=== PATIENT | male | born 1945 | race Caucasian/White ===

== ENCOUNTER → 2018-02-25 | Outpatient (CLI) | payer OTHER | LOC: BHFA 14:30 | PROVIDERS: ATTEND Internal Medicine Cardiovascular Disease | DX: I25.10 Atherosclerotic heart disease of native coronary artery without angina pectoris (principal); E78.5 Hyperlipidemia, unspecified ==

== ENCOUNTER 2018-03-22 16:47 | Inpatient (IN) | payer OTHER ==
[2018-03-22 17:28] LABS: PLATELET COUNT 269 10^3/uL (150-400)
[2018-03-22] MEDS ORDERED: ASPIRIN 81 MG CHEWABLE TAB PO ONE (17:34)
--- NOTE | 2018-03-22 17:40 | EDPHY ---
H & P Stated Complaint: midsternal CP x ~3 hours Time Seen by Provider: 03/22/18 17:00 HPI/ROS: CHIEF COMPLAINT: Heartburn HISTORY OF PRESENT ILLNESS: 72-year-old male with CAD, status post cardiac stents in 2010 presents with heartburn. After working out in the gym, he developed heartburn while in the shower at 1:30 p.m.. The heartburn was 8/10 initially and associated with diaphoresis. The chest discomfort has persisted, and gradually subsided. Pain is now 3/10. No prior similar symptoms. He was diagnosed with coronary artery disease by cardiac catheterization during evaluation for pulmonary embolism, but has never had chest pain or shortness of breath. Recently stopped Plavix. Did not take aspirin today. REVIEW OF SYSTEMS: complete 10 point ROS reviewed and is negative except for the noted elements in the HPI - Personal History Tetanus Vaccine Date: 2012 - Medical/Surgical History Hx Asthma: No Hx Chronic Respiratory Disease: No Hx Diabetes: No Hx Cardiac Disease: Yes Hx Renal Disease: No Hx Cirrhosis: No Hx Alcoholism: No Hx HIV/AIDS: No Hx Splenectomy or Spleen Trauma: No Other PMH: cardiac stents 2010. htn. hyperlipid - Social History Smoking Status: Never smoked Alcohol Use: Sober Drug Use: None Additional Social History: - Physical Exam Exam: General Appearance: Alert, pleasant Eyes: Pupils equal and round, no conjunctival pallor or injection ENT, Mouth: Mucous membranes moist Neck: Normal inspection Respiratory: Lungs are clear to auscultation Cardiovascular: Regular rate and rhythm Gastrointestinal: Abdomen is soft and nontender Neurological: A&O, nonfocal, normal gait Skin: Warm and dry, no rash Extremities: Nontender, no pedal edema Psychiatric: Mood and affect normal Constitutional: Initial Vital Signs Temperature (C) 36.4 C 03/22/18 16:51 Heart Rate 94 03/22/18 16:51 Respiratory Rate 16 03/22/18 16:51 Blood Pressure 153/100 H 03/22/18 16:51 O2 Sat (%) 96 03/22/18 16:51 O2 Delivery Mode Room Air O2 (L/minute) 2 Allergies/Adverse Reactions: No Known Allergies Allergy (Verified 03/22/18 20:33) Home Medications: Medication Instructions Recorded Rosuvastatin Calcium [Crestor] 10 mg PO HS 11/08/12 Aspirin [Aspirin 325 mg (*)] 325 mg PO HS 03/22/18 Dexlansoprazole [Dexilant] 60 mg PO DAILY 03/22/18 Fluticasone Nasal [Flonase Nasal 2 sprays NASAL DAILY 03/22/18 Perry (RX)] Losartan Potassium [Cozaar 50 mg 50 mg PO HS 03/22/18 (*)] Medical Decision Making - Diagnostics EKG Interpretation: EKG interpreted by me reveals probable sinus tachycardia, Pac, poor R-wave progression, ST segment depression. Interpretation: Abnormal EKG Imaging Results: Imaging Impressions Chest X-Ray 03/22/18 17:13 Impression: 1.No pneumonia or evidence for CHF in this patient with CAD. Imaging: I viewed and interpreted images myself ED Course/Re-evaluation: 1734: Dr. Campuzano consulted. ASA 325mg given. 1809: repeat EKG reveals ST segment elevation in the anterior leads, c/w ACS. Dr. Campuzano is in the emergency department and EKG reviewed with him. The cardiac catheterization lab was called and Dr Campuzano went to see the pt. The patient was taken to the medical laboratory technicians by Dr. Esteban salas. The patient remained stable throughout his emergency department stay. He continued to have 3/10 chest pain throughout his emergency department stay. Differential Diagnosis: Differential diagnosis includes though it is not limited to pneumonia, pneumothorax, pulmonary embolism, aortic dissection, pericarditis, acute coronary syndrome. - Data Points Laboratory Results: Laboratory Results 03/22/18 17:17 03/22/18 17:17 03/22/18 03/22/18 03/22/18 17:20 17:17 17:17 WBC 12.47 10^3/uL H 10^3/uL (3.80-9.50) RBC 5.60 10^6/uL 10^6/uL (4.40-6.38) Hgb 16.9 g/dL g/dL (13.7-17.5) Hct 47.9 % % (40.0-51.0) MCV 85.5 fL fL (81.5-99.8) MCH 30.2 pg pg (27.9-34.1) MCHC 35.3 g/dL g/dL (32.4-36.7) RDW 12.2 % % (11.5-15.2) Plt Count 269 10^3/uL 10^3/uL (150-400) MPV 10.0 fL fL (8.7-11.7) Neut % (Auto) 88.7 % H % (39.3-74.2) Lymph % (Auto) 6.3 % L % (15.0-45.0) [place] % (Auto) 4.1 % L % (4.5-13.0) Eos % (Auto) 0.3 % L % (0.6-7.6) Baso % (Auto) 0.2 % L % (0.3-1.7) Nucleat RBC Rel Count 0.0 % % (0.0-0.2) Absolute Neuts (auto) 11.05 10^3/uL H 10^3/uL (1.70-6.50) Absolute Lymphs (auto) 0.79 10^3/uL L 10^3/uL (1.00-3.00) Absolute Monos (auto) 0.51 10^3/uL 10^3/uL (0.30-0.80) Absolute Eos (auto) 0.04 10^3/uL 10^3/uL (0.03-0.40) Absolute Basos (auto) 0.03 10^3/uL 10^3/uL (0.02-0.10) Absolute Nucleated RBC 0.00 10^3/uL 10^3/uL (0-0.01) Immature Gran % 0.4 % % (0.0-1.1) Immature Gran # 0.05 10^3/uL 10^3/uL (0.00-0.10) Sodium 140 mEq/L mEq/L (135-145) Potassium 4.5 mEq/L mEq/L (3.5-5.2) Chloride 107 mEq/L mEq/L (97-110) Carbon Dioxide 25 mEq/l mEq/l (22-31) Anion Gap 8 mEq/L mEq/L (6-14) BUN 22 mg/dL mg/dL (7-23) Creatinine 1.3 mg/dL mg/dL (0.7-1.3) Estimated GFR 54 Glucose 117 mg/dL H mg/dL (70-100) Calcium 9.7 mg/dL mg/dL (8.5-10.4) POC Troponin I 2.05 ng/mL H ng/mL (0.00-0.08) NT-Pro-B Natriuret Pep 76 pg/mL pg/mL (0-125) Medications Given: Hydrocodone Bitart/Acetaminophen ([place] 5/325) 1 - 2 tab PO Q4HRS PRN PRN Reason: Pain, Moderate Stop: 04/01/18 19:35 Last Admin: 03/22/18 20:24 Dose: 2 tab HCTZ/Losartan Potassium (Hyzaar 50/12.5) 2 tab PO DAILY MARTIR Stop: 09/18/18 19:44 Last Admin: 03/22/18 20:25 Dose: 2 tab Metoprolol Tartrate (Lopressor) 50 mg PO BID MARTIR Stop: 09/18/18 20:59 Last Admin: 03/22/18 20:25 Dose: 50 mg Ondansetron HCl (Zofran) 2 - 4 mg IVP Q6HRS PRN PRN Reason: Nausea/Vomiting, Use 1st Stop: 09/18/18 19:35 Last Admin: 03/22/18 21:18 Dose: 4 mg Discontinued Medications Aspirin (Aspirin) 324 mg PO EDNOW ONE Stop: 03/22/18 17:35 Last Admin: 03/22/18 17:46 Dose: 324 mg Nitroglycerin (Nitro-Bid) 0.4 mg PO BID PRN PRN Reason: Chest Pain Stop: 09/18/18 20:59 Last Admin: 03/22/18 18:34 Dose: 0.4 mg Point of Care Test Results: Chemistry 03/22/18 17:20 POC Troponin I 2.05 ng/mL H ng/mL (0.00-0.08) Departure - Departure Disposition: [facility] Clinical Impression: Acute coronary syndrome Condition: Serious
[2018-03-22] MEDS ORDERED: NITROGLYCERIN 0.4 MG BTL SL ONE (18:28)
[2018-03-22] MEDS ORDERED: LIDOCAINE 1% 300 MG/30 ML SDV ONE (18:32)
[2018-03-22] MEDS ORDERED: NITROGLYCERIN 2.5 MG PO PRN (18:32)
[2018-03-22] MEDS ORDERED: fentaNYL 100 MCG/2 ML INJ ONE (18:33)
[2018-03-22] MEDS ORDERED: MIDAZOLAM 2 MG/2 ML VIAL ONE (18:33)
[2018-03-22] MEDS ORDERED: IOPAMIDOL (ISOVUE-370) 150 ML BTL IV ONE (18:33)
--- NOTE | 2018-03-22 19:07 | PDPROPOC ---
Sedation Plan of Care Sedation Plan of Care: vital signs stable, mental status noted, patient educated of risks, benefits, alternatives, patient can tolerate sedation Planned drugs: fentanyl, midazolam Mallampati Score: Class 3 Mallampati Reference Image: Patient passed 3-3-2 rule?: Yes
[2018-03-22] MEDS ORDERED: BIVALIRUDIN 250 MG/5 ML VIAL IV ONE (19:09)
--- NOTE | 2018-03-22 19:14 | PDDXCAT ---
Diagnostic Cath Note - . Date: 03/22/18 Label Fuser Tender: Alma Rosa Indication: CCC Class III and IV angina on medical treatment - Procedure Access: right groin Procedure: left heart catheterization, coronary angiography, left ventriculogram - Materials Left Heart Cath size: 6F Left Heart Cath materials: JL4.0, JR4.0, pigtail - Findings-Left Heart Catheterization LM: The left main is 8mm in size and trifurcates into a circumflex, left anterior descending and ramus systems. There is a 20% ostial stenosis and VAN III flow. LAD: The left anterior descending is 2mm in size and previously stented in the proximal segment. LCX: The circumflex is 4mm in size. There is VAN III flow and no evidence of obstruction. RCA: The right coronary artery is 3mm in size and dominant. The vessel gives rise to the posterior descending artery. There is VAN III flow throughout. There is no evidence of flow-limiting disease. Ramus: The ramus is 1mm in size with VAN III. EDP: 30mmHg. LVEF: 45%. Wall motion: On the LV gram there is mildly decreased LV systolic function. The EF is 45%. There are no resting segmental wall motion abnormalities. The visualized portion of the thoracic aortic valve reveals three sinuses of valsalva most consistent with a trileaflet valve. There is no gradient on pullback across the aortic valve. THere is no evidence of elza dissection or aneurysm formation of the thoracic aorta. - Findings-Right Heart Catheterization AO: 167/95/129 Complications: NONE Estimated blood loss: <50ml Closure method: Angioseal Assessment: The patient has coronary artery disease with a dominant right coronary system. There is no flow-limiting disease or evidence of obstruction. The patient's ejection fraction was mildly globally decreased at 45%. The patient is hypertensive and may have a hypertension related cardiomnyopathy. Plan: The patient has non-flow limiting coronary disease that should be treated medically with dual anti platelet therapy with Plavix 75mg daily and ASA is also recommended specifically a dose of 81 mg per day. His BP also needs to be controlled for a goal systolic pressure of less than 130mmHg. Intervention: NONE Patient Problems: Problems Problem Status Onset Acute coronary syndrome Acute
[2018-03-22] MEDS ORDERED: METOPROLOL TARTRATE 5 MG/5 ML INJ ONE (19:21)
[2018-03-22] MEDS ORDERED: CLOPIDOGREL BISULFATE 75 MG TAB ONE (19:34)
[2018-03-22] MEDS ORDERED: HYDROCODONE/APAP 5/325 TAB PO PRN (19:36)
[2018-03-22] MEDS ORDERED: ATROPINE SULFATE 1 MG/10 ML SYR IVP PRN (19:36)
[2018-03-22] MEDS ORDERED: NITROGLYCERIN 0.4 MG BTL SL PRN (19:36)
[2018-03-22] MEDS ORDERED: ONDANSETRON 4 MG/2 ML VIAL IVP PRN (19:36)
[2018-03-22] MEDS ORDERED: OXYCODONE/APAP 5/325 TAB PO PRN (19:36)
--- NOTE | 2018-03-22 19:36 | PDHPUP ---
History & Physical Update H&P update statement: This history and physical update is based on an assessment of the patient which was completed after admission or registration (within 24 hours), but prior to the surgery/procedure. H&P update: H&P reviewed & patient examined, changes noted (Patient seen by Dr. Campuzano and needs angiography for suspected acute coronary syndrome.)
--- NOTE | 2018-03-22 19:48 | GHP ---
DATE OF ADMISSION: 03/22/2018 INDICATION FOR ADMISSION: Acute onset of chest HISTORY OF PRESENT ILLNESS: The patient is a pleasant 72-year-old gentleman, with a known history of coronary artery disease, with history of PCI x2 with overlapping stents to the LAD in 2010, who was working out in the gym today when he developed heartburn while in the shower at approximately 1:30 p. m. He describes the initial discomfort as an 8/10 and associated with diaphoresis. Symptoms gradual ly subsided, but his pain has persisted at 3/10, prompting him to seek medical attention at [facility]. Initial ECG demonstrated old anteroseptal infarction with evidence of ST-segment depression in the inferior and lateral leads. Initial troponin was elevated at 2. Repeat ECG demons trated improved ST-segment depression, but development of idioventricular rhythm with ST-segment elev ation in the right precordial leads. This coincided with an increase in his chest pain to now a 5/10 substernal chest pressure. Currently, at the time of exam, he is in mild distress with 5/10 subster nal chest pain. He denies any associated shortness of breath, dyspnea. He denies associated nausea or vomiting. He has admitted to some onset of diaphoresis. He has no complaints of palpitations, dizziness, lighthea dedness, near-syncope, or syncope. He has no complaints of abdominal pain, back pain, flank pain. N o complaints of recent viral illness. No fever, chills, sweats, nausea, or vomiting. He does have a chronic cough for the last year and a half. He had not taken his aspirin earlier today. He had been on dual antiplatelet therapy up until 2017, and Plavix was discontinued in February 2018. REVIEW OF SYSTEMS: Otherwise negative, with the exception of those listed above. PAST MEDICAL HISTORY: Coronary artery disease with PCI x2 to the proximal and mid LAD, total of 42 m m of stent, history of hyperlipidemia, and a remote history of pulmonary embolism. MEDICATIONS ON ADMISSION: Include aspirin 325 mg daily, Crestor 10 mg daily, losartan 50 mg daily. ALLERGIES TO MEDICATIONS: None. SOCIAL HISTORY: He is . He presents to the office today with his as well as his son. PHYSICAL EXAMINATION: VITAL SIGNS: Blood pressure 153/100, respiratory rate of 16, oxygen saturatio n 96% on 2 L nasal cannula, temperature 36.4. GENERAL: He is awake, alert, oriented, appropriate. No apparent distress. NECK: There is no evidence of JVP or carotid bruits. LUNGS: Clear to auscul tation bilaterally. CARDIAC: S1, S2. Regular rate and rhythm. No murmurs, rubs, or gallops. ABDO MEN: Soft, nontender, nondistended. There is no pulsatile mass or abdominal bruit. EXTREMITIES: R adial pulses are intact, 1+ bilaterally. Distal pulses are intact. No evidence of cyanosis, clubbin g, or edema. DATA: White blood cell count 12.47, hemoglobin 16.9, hematocrit of 47.9, platelet count 269. Sodium 140, potassium 4.5, chloride 107, bicarb 25, BUN 22, creatinine 1.3, glucose 117. Lmnqy-pw-sprx tro ponin 2.05. N-terminal proBNP . IMPRESSION: 1. Acute onset chest pain. 2. Idioventricular ventricular rhythm with ST-segment elevations in the right precordial leads. 3. Initial presentation with non ST-segment elevation myocardial infarction. PLAN: Will arrange for urgent left heart catheterization. The patient has been given aspirin 325 mg daily. In the setting of ongoing chest pain, we will give single sublingual nitroglycerin. Jose G haji colleague and cardiac slab miller operator team have been notified. They are currently in-house. /[id number]/MODL
[2018-03-22] MEDS: LOSARTAN/HCTZ 50/12.5 1 TAB PO SCH (20:25)
[2018-03-22] MEDS: METOPROLOL TARTRATE 50 MG TAB PO SCH (20:25)
--- NOTE | 2018-03-22 23:14 | CPEKG ---
Test Reason : OPEN Blood Pressure : / mmHG Vent. Rate : 093 BPM Atrial Rate : 095 BPM P-R Int : 197 ms QRS Dur : 120 ms QT Int : 388 ms P-R-T Axes : 000 -63 083 degrees QTc Int : 483 ms Sinus rhythm Atrial premature complex Nonspecific IVCD with LAD Anterior infarct Confirmed by Dayanna Leung ([id number]) on 03/22/2018 11:14:10 PM Referred By: Confirmed By:Dayanna Leung
--- NOTE | 2018-03-22 23:20 | CPEKG ---
Test Reason : OPEN Blood Pressure : / mmHG Vent. Rate : 115 BPM Atrial Rate : 116 BPM P-R Int : 156 ms QRS Dur : 110 ms QT Int : 286 ms P-R-T Axes : 000 017 204 degrees QTc Int : 396 ms ideoventricular rhythm Atrial premature complex Anteroseptal infarct, old Repol abnrm, severe global ischemia (LM/MVD) Confirmed by Dayanna Leung ([id number]) on 03/22/2018 11:20:07 PM Referred By: Confirmed By:Dayanna Leung
--- NOTE | 2018-03-23 10:35 | PDMN ---
Medical Necessity Medical necessity: MCG M89 CP A-1day: 72 yo w/ acute CP. Elevated troponin and abnormal EKG noted. Cardiology consulted and further testing reveals idioventricular ventricular rhythm w/ ST-segment elevations in right precordial leads and initial presentation w/ non ST-segment elevation MA. Urgent heart cath completed, shows CAD, decreased EF 45%, possibly HTN related cardiomyopathy. Anticipate>2MN for ongoing medical tx and cardiac monitoring of the above. Hx CAD w/ PCIx2 to proximal and mid LAD, HLD, PE
[2018-03-23] MEDS: METOPROLOL TARTRATE 50 MG TAB PO SCH ×2 (10:43→22:01)
[2018-03-23] MEDS: LOSARTAN/HCTZ 50/12.5 1 TAB PO SCH (10:44)
--- NOTE | 2018-03-23 14:03 | ASMTCMCOM ---
CM Note CM Note Notes: 03/23/2018 Case Management Note Reviewed chart. Pt admitted for urgent left heart cath after acute onset of chest pain. There are no case management d/c needs identified at this time d/t pt age, marital status, and independence with ADL's prior to admission. There are no therapy evals ordered at this time. Anticipating independent discharge with follow up as directed. Case Management d/c poc: to be determined. Case Management to follow. Date Signed: 03/23/2018 02:02 PM Electronically Signed By:Rosana Martin RN
[2018-03-23] MEDS: CLOPIDOGREL BISULFATE 75 MG TAB PO SCH (14:44)
[2018-03-23] MEDS: PANTOPRAZOLE SODIUM 40 MG TAB PO SCH (14:44)
[2018-03-23] MEDS: ASPIRIN EC 81 MG TAB PO SCH (14:45)
[2018-03-23] MEDS: FLUTICASONE NASAL 120 SPRAYS/16 GM MDI EACHNARE SCH (14:47)
--- NOTE | 2018-03-23 17:01 | PDCARPN ---
Cardiology Progress Note Chief Complaint: I am feeling much better and the chest pain has resolved. Assessment/Plan: Assessment: New and unexplained cardiomyopathy somewhat regional as in the LAD territory. The hypertension and chest pain have resolved. Plan overnight admission and track the heart rhythm. Beta daisy, blood pressure control and dual antiplatelet therapy for now. BNP And troponin in AM Plan: Aa above. 03/23/18 16:55 Subjective: I feel better. Reviewed/Discussed With: family, multidisciplinary team Time Spent with Patient: greater than 25 minutes Time Spent with Patient: Greater than 25 minutes spent on this patients care, greater than 50% of time spent counseling, educating, and coordinating care regarding the above mentioned plan. Objective: Vital Signs (8 Hrs) Temp Pulse Resp BP Pulse Ox 03/23/18 16:00 36.4 C 56 L 16 114/64 99 03/23/18 14:00 54 L 18 114/74 99 03/23/18 11:00 58 L 12 120/67 03/23/18 10:00 54 L 18 122/69 H 98 03/23/18 09:00 53 L 16 122/69 H 99 Intake/Output (24 Hrs) 03/22/18 03/23/18 03/24/18 05:59 05:59 05:59 Intake Total 550 Output Total 375 1200 Balance 175 -1200 Intake: Oral (ml) 550 Output: Urine (ml) 375 1200 Toilet 375 1200 Other: Weight 88.3 kg Result Diagrams: 03/22/18 17:17 03/22/18 17:17 Cardiac Labs: Trop 2 Telemetry: frequent and consecutive PVC's Echocardiogram: Regional wall motion abnormality and EF 40-45. See full report. ICD10 Worksheet Patient Problems: Problems Problem Status Onset Acute coronary syndrome Acute
--- NOTE | 2018-03-23 17:18 | ECHO ---
[email or web address] [address] [address] Main: [phone] Fax: [email or web address] Echocardiogram Name: SELENA GALLEGOS MR#: [id number] Study Date: 03/23/2018 Study Time: 07:36 AM Date of : 1945 Age: 72 year(s) Height: 182.9 cm (72 in.) Weight: 84.37 kg (186 lb.) BSA: 2.07 m2 Gender: Male Examination: Echo Indication: Elevated troponin Image Quality: Contrast: Requested by: Chan St BP: 128 mmHg/74 mmHg Heart Rate: Rhythm: Indication: Elevated troponin Procedure Staff Fryline Attendant: Servando Martin RDCS Reading Physician: Chan St MD Requesting Provider: Conclusions: Normal size left ventricle. Mildly to moderately reduced systolic funtion. EF is 48 %. There is mid anteroseptal to apical hypokinesis. The EF is estimated at 40-45%. Normal size right ventricle. Normal RV function. The left atrium is normal in size. The right atrium is normal in size. The mitral valve is normal in appearance and function. There is no significant mitral valve regurgitation. The aortic valve is tri-leaflet. The aortic valve is normal in appearance. The tricuspid valve appears normal. Mild tricuspid regurgitation is present. The pulmonary artery pressure is normal. The pulmonic valve is normal in appearance and function. The aorta is normal. No pericardial effusion. These findings are consistent with LAD ischemia. Measurements: Chambers Valvular Assessment AV/MV Valvular Assessment TV/PV Normal Normal Normal Name Value Range Name Value Range Name Value Range Ao Karen (MM): 3.5 cm (2.2 cm-3.7 AV Vmax: 0.84 m/s (1 m/s-1.7 TR Vmax: 2.74 mm/s ( - ) cm) m/s) TR PGmax: 30 mmHg ( - ) IVSd (2D): 0.8 cm (0.6 cm-1.1 AV maxP mmHg ( - ) syst. PAP: 35 mmHg ( - ) cm) LVOT Vmax: 0.69 m/s (0.7 m/s-1.1 PV Vmax: 0.72 m/s (0.6 m/s-0.9 LVDd (2D): 5.4 cm (4.2 cm-5.9 m/s) m/s) cm) MV E Vmax: 0.53 m/s ( - ) Patient: SELENA GALLEGOS Study Date: 03/23/2018 Page 1 of 2 07:36 AM LVDs (2D): 4.2 cm (2.1 cm-4 MV A Vmax: 0.73 m/s ( - ) PV PGmax: 2 mmHg ( - ) cm) MV E/A: 0.73 ( - ) LVPWd (2D): 0.9 cm (0.6 cm-1 cm) LVEF (BP): 48 % (>=55 %) Continued Measurements: Chambers Valvular Assessment AV/MV Valvular Assessment TV/PV Name Value Name Value Name Value LADs Lon.3 cm MV E' Septal: 0.05 m/s CVP (est.): 5 mmHg LA Area: 14.5 cm2 MV E/E' Septal: 10.60 LA Volume: 46 ml MV E/E' Lateral: 6.10 LA Volume Index: 22.2 ml/m2 Findings: Left Ventricle: Normal size left ventricle. Mildly to moderately reduced systolic funtion. EF is 48 %. There is mid anteroseptal to apical hypokinesis. The EF is estimated at 40-45%. Right Ventricle: Normal size right ventricle. Normal RV function. Left Atrium: The left atrium is normal in size. Right Atrium: The right atrium is normal in size. Mitral Valve: The mitral valve is normal in appearance and function. There is no significant mitral valve regurgitation. No mitral stenosis is present. Aortic Valve: The aortic valve is tri-leaflet. The aortic valve is normal in appearance. Tricuspid Valve: The tricuspid valve appears normal. Mild tricuspid regurgitation is present. The pulmonary artery pressure is normal. Pulmonic Valve: The pulmonic valve is normal in appearance and function. Aorta: The aorta is normal. Pericardium: No pericardial effusion. (No Signature Object) Patient: SELENA GALLEGOS Study Date: 03/23/2018 Page 2 of 2 07:36 AM [id number]
[2018-03-23] MEDS ORDERED: ROSUVASTATIN CALCIUM 10 MG TAB PO SCH (21:00)
[2018-03-24] MEDS: METOPROLOL TARTRATE 50 MG TAB PO SCH (09:13)
[2018-03-24] MEDS: ASPIRIN EC 81 MG TAB PO SCH ×2 (09:13→09:16)
[2018-03-24] MEDS: PANTOPRAZOLE SODIUM 40 MG TAB PO SCH ×2 (09:14→09:17)
[2018-03-24] MEDS: LOSARTAN/HCTZ 50/12.5 1 TAB PO SCH ×3 (09:14→11:20)
[2018-03-24] MEDS: CLOPIDOGREL BISULFATE 75 MG TAB PO SCH ×2 (09:14→09:17)
[2018-03-24] MEDS: FLUTICASONE NASAL 120 SPRAYS/16 GM MDI EACHNARE SCH (09:17)
[2018-03-24 15:38] VITALS: BP 122/67
--- NOTE | 2018-03-24 17:32 | GDS ---
ADMISSION DIAGNOSIS: 1. Acute coronary syndrome. 2. Hypertension with possible hypertensive crisis. 3. History of kidney stone. 4. Dyslipidemia. DISCHARGE DIAGNOSIS: 1. Chest pain syndrome, now resolved. 2. Unexplained cardiomyopathy suspected to be either an ischemic cardiomyopathy versus an early stre ss-induced cardiomyopathy such as an early takotsubo type syndrome. 3. Hypertension. 4. Dyslipidemia. For detailed history of present illness, please see the recently dictated H and P. Briefly, this is a 72-year-old man with a history of coronary disease status post PTCA and stent placement of the ostia l and proximal LAD. He recently had his aspirin and Plavix discontinued in mid February of last year . He was in his usual state of health and taking a shower when he experienced a sudden onset of rela tively severe chest discomfort. He presented to the hospital with complaints of chest discomfort in the center of his chest without relief. There was only partial relief with nitroglycerin. Serial EK Gs were obtained and 1 of them appeared to reveal possible ST elevation. On careful review of the EK G, it looks more consistent with a brief run of accelerated idioventricular rhythm that coincided wit h the timing of the precordial leads, resulting in some confusion. The patient underwent emergency cardiac catheterization because his troponin was found to be elevated at 2, and he was felt to have a possible acute coronary syndrome. There were concerns about the pos sibility of a partial subacute stent thrombosis given his clinical history. The patient underwent schmitz ccessful angiography demonstrating widely patent LAD stent. There was no new coronary disease identi fied. There were no obstructive lesions. The patient underwent left heart catheterization demonstra ting mildly depressed left ventricular systolic function with distal anterior wall and apical hypokin esis which was new and concerning. We felt [facility]. He was also noted to be quite hypertensive, which was treated with initially IV and then oral beta blockade. On the afternoon of his discharge from the [facility] the patient is medically stable and in good condition. He has had occasional PACs and PVCs on the monitor, but no further runs of nonsustained ventricular tachycardia. At the time of his discha rge from the hospital his vital signs are stable with blood pressure 122/67 and well controlled. His heart rate is 54 and regular, respirations 16 and unlabored, oxygen saturation is 95% on room air. The remainder of his exam is normal. His groin site is pristine without significant ecchymosis or he matoma. DISCHARGE MEDICATIONS: Include aspirin 81 mg daily, Plavix 75 mg daily, which should be continued in combination for another year. I would like to place him on Protonix 40 mg p.o. daily, and a new sharee g, metoprolol tartrate 50 mg p.o. twice daily. He will resume his regular home rosuvastatin at 10 mg daily, losartan at 50 mg p.o. at bedtime, Dexilant 60 mg daily, and Flonase. I would like to follow up with him in 2-3 weeks for an outpatient 48 hour Holter monitor followed by an office visit with me. He is to return promptly to the emergency department should he experience c hest discomfort, pressure, tightness, or other clinical symptoms of concern. /[id number]/MODL
== END 2018-03-24 17:43 | disposition home or self-care (01) | DRG 287 ==
LOC: F2N 20:04 → F2W 03-23 19:55
PROVIDERS: ADMIT Internal Medicine Cardiovascular Disease; ATTEND Internal Medicine Cardiovascular Disease
PROC: B2111ZZ Fluoroscopy of Multiple Coronary Arteries using Low Osmolar Contrast (ICD-10-PCS; principal; 2018-03-22)
PROC: 4A023N8 Measurement of Cardiac Sampling and Pressure, Bilateral, Percutaneous Approach (ICD-10-PCS; principal; 2018-03-22)
PROC: B2151ZZ Fluoroscopy of Left Heart using Low Osmolar Contrast (ICD-10-PCS; principal; 2018-03-22)
DX: R07.89 Other chest pain (principal); I42.9 Cardiomyopathy, unspecified; I10 Essential (primary) hypertension; E78.5 Hyperlipidemia, unspecified; Z95.5 Presence of coronary angioplasty implant and graft; Z86.711 Personal history of pulmonary embolism
CPT/HCPCS: 84484-ER; C1760; J0583; J1200; J1644; J2250; J2270; J2405; J3010; Q9967